=== PATIENT | female | born 1980 | race African-American/Black ===

== ENCOUNTER → 2018-07-06 | Outpatient (CLI) | payer BC ==
[2018-07-06 12:19] LABS: ABSOLUTE BASOPHILS # (AUTO) 0.1 10^3/uL (0.0-0.2); ABSOLUTE EOSINOPHILS # (AUTO) 0.2 10^3/uL (0.0-0.6); ABSOLUTE LYMPHOCYTES (AUTO) 1.3 10^3/uL (0.5-4.7); ABSOLUTE MONOCYTES (AUTO) 0.7 10^3/uL (0.1-1.4); ABSOLUTE NEUT (AUTO) 3.7 10^3/uL (1.7-8.2); EOSINOPHILS % (AUTO) 3.9 % (0-6); HEMATOCRIT 28.8 % (36.0-47.0); HEMOGLOBIN 8.9 g/dL (12.0-15.5); LYMPHOCYTES % (AUTO) 21.9 % (13-45); MEAN CORPUSCULAR VOLUME 71 fl (80-97); MONOCYTES % (AUTO) 11.5 % (3-13); PLATELET COUNT 555 10^3/uL (150-450); RED BLOOD COUNT 4.06 10^6/uL (3.72-5.28); RED CELL DISTRIBUTION WIDTH 18.9 % (11.5-14.0); SEGMENTED NEUTROPHILS % (AUTO) 60.7 % (42-78); TOTAL CELLS COUNTED % (AUTO) 100 %; WHITE BLOOD COUNT 6.1 10^3/uL (4.0-10.5)
[2018-07-06 12:33] LABS: ALANINE AMINOTRANSFERASE 59 U/L (9-52); ALBUMIN 4.6 g/dL (3.5-5.0); ALKALINE PHOSPHATASE 77 U/L (38-126); ANION GAP 13 (5-19); ASPARTATE AMINO TRANSFERASE 70 U/L (14-36); BILIRUBIN,DIRECT 0.3 mg/dL (0.0-0.4); BILIRUBIN,TOTAL 0.5 mg/dL (0.2-1.3); BLOOD UREA NITROGEN 10 mg/dL (7-20); CARBON DIOXIDE 25 mmol/L (22-30); CHLORIDE 104 mmol/L (98-107); GLUCOSE 85 mg/dL (75-110); SODIUM 142.4 mmol/L (137-145); TOTAL PROTEIN 7.9 g/dL (6.3-8.2)
[2018-07-06 13:38] LABS: CHLAM PCR NOT DETECTED (NOT DETECT); GON PCR NOT DETECTED (NOT DETECT)
== END ==
LOC: OD 11:07
PROVIDERS: ATTEND Family Medicine
DX: N92.1 Excessive and frequent menstruation with irregular cycle (principal); Z01.419 Encounter for gynecological examination (general) (routine) without abnormal findings
CPT/HCPCS: 36415; 80053; 84443; 84703; 85025; 87491; 87591

== ENCOUNTER → 2018-07-08 | Outpatient (CLI) | payer BC ==
--- NOTE | 2018-07-08 13:57 | RADIOLOGY REPORT (SQ) ---
EXAM DESCRIPTION: U/S NON-OB PELVIS TV W/O DOP COMPLETED DATE/TIME: 07/08/2018 11:20 am REASON FOR STUDY: ENLARGED UTERUS (N85.2) N85.2 HYPERTROPHY OF UTERUS LMP 06/25/2018 COMPARISON: None. TECHNIQUE: Dynamic and static grayscale images acquired of the pelvis via transvaginal approach and recorded on PACS. Additional selected color Doppler and spectral images recorded. LIMITATIONS: None. FINDINGS: UTERUS: Multiple fibroids. The largest measures 4 x 4.2 x 4.1 cm. ENDOMETRIAL STRIPE: No focal or generalized thickening. No masses. CERVIX: 3.4 cm. Nabothian cysts are present. RIGHT OVARY AND DOPPLER: Surgically absent. LEFT OVARY AND DOPPLER: Ovary not seen. FREE FLUID: None noted. OTHER: No other significant finding. MEASUREMENTS: UTERUS: 10.6 x 6.3 x 5.4 cm. ENDOMETRIAL STRIPE: 15 mm. RIGHT OVARY: Absent. LEFT OVARY: Not seen. IMPRESSION: Uterine fibroids are present. TECHNICAL DOCUMENTATION: JOB ID: [id number] [employer]- All Rights Reserved Rev-09/11 Reading location - IP/workstation name: [email or web address]
== END ==
LOC: RAD 10:36
PROVIDERS: ATTEND Family Medicine
DX: N85.2 Hypertrophy of uterus (principal)
CPT/HCPCS: 76830

== ENCOUNTER → 2019-04-04 | Outpatient (CLI) | payer BC ==
--- NOTE | 2019-04-04 21:07 | XCELERA REPORT ---
[address] [address] Transthoracic Echocardiogram Report Name: JELANI GRACIA Age: 38 yrs Gender: Female : 1980 Patient Status: Outpatient Patient Location: Study Date: 04/04/2019 03:25 PM Height: 66 in Weight: 157 lb BSA: 1.8 m2 Reason For Study: ABN EKG Ordering Physician: VAL CARNES Performed By: Ruchi Simpson Interpretation Summary Small post pericardial effusion. Mod nonstenotic calcific aortic valvular disease, no AR, 3 cusps AV. No Mitral annular calcification, no MS, no MVP. MR is mild/mod. and LA is mod. enlarged.(M-mode is 48mm), no LA calculated by quality assurance technician. MIld concentric LVH (IVS 11/PW 13 mm ) with hypokinesis of the IVS, no other regional wall motion abn. No LV enlargement, LVESD29 mm. Biplane LVEF 53% with LV diastolic dysfunction.E/E' medial is 35. RH is normal size, Mild TR with RVSP 39 mm Hg.(mild pulm hypertension). MMode/2D Measurements & Calculations RVDd: 2.4 cm LVIDd: 5.4 cm FS: 31.4 % Ao root diam: IVSd: 0.61 cm LVIDs: 3.7 cm EDV(Teich): 2.1 cm LVPWd: 0.98 cm 143.5 ml Ao root area: ESV(Teich): 59.2 ml 3.5 cm2 LA dimension: EF(Teich): 58.8 % 4.3 cm LVLd ap4: 8.4 cm SV(MOD-sp4): EDV(MOD-sp4): 70.0 ml 121.0 ml LVLs ap4: 7.2 cm ESV(MOD-sp4): 51.0 ml EF(MOD-sp4): 57.9 % Doppler Measurements & Calculations MV E max katharina: MV dec time: Ao V2 max: LV V1 max P.5 cm/sec 0.09 sec 155.5 cm/sec 3.8 mmHg MV A max katharina: Ao max P.7 mmHgLV V1 max: 93.8 cm/sec 97.6 cm/sec MV E/A: 1.5 PA V2 max: PI end-d katharina: TR max katharina: 83.3 cm/sec 170.1 cm/sec 312.4 cm/sec PA max P.8 mmHg TR max P.0 mmHg I WMSI = 1.13 % Normal = 88 Segments Size X - Cannot 2 - 4 - 1-2 small Interpret 1 - Normal Hypokinetic 3 - AkineticDyskinetic 3-5 moderate 5 - 6-14 large Aneurysmal 15-16 diffuse : VAL CARNES Andre
== END ==
LOC: SP 14:27
PROVIDERS: ATTEND Family Medicine
DX: R94.31 Abnormal electrocardiogram [ECG] [EKG] (principal)
CPT/HCPCS: 93306

== ENCOUNTER → 2020-02-15 | Outpatient (CLI) | payer BC ==
[2020-02-15 08:52] LABS: ABSOLUTE BASOPHILS # (AUTO) 0.1 10^3/uL (0.0-0.2); ABSOLUTE EOSINOPHILS # (AUTO) 0.2 10^3/uL (0.0-0.6); ABSOLUTE LYMPHOCYTES (AUTO) 1.5 10^3/uL (0.5-4.7); ABSOLUTE MONOCYTES (AUTO) 0.9 10^3/uL (0.1-1.4); ABSOLUTE NEUT (AUTO) 3.3 10^3/uL (1.7-8.2); BASOPHILS % (AUTO) 1.4 % (0-2); EOSINOPHILS % (AUTO) 3.3 % (0-6); HEMATOCRIT 30.6 % (36.0-47.0); HEMOGLOBIN 9.3 g/dL (12.0-15.5); LYMPHOCYTES % (AUTO) 24.7 % (13-45); MEAN CORPUSCULAR HEMOGLOBIN 20.7 pg (27.0-33.4); MEAN CORPUSCULAR HGB CONC 30.3 g/dL (32.0-36.0); MEAN CORPUSCULAR VOLUME 68 fl (80-97); MONOCYTES % (AUTO) 14.5 % (3-13); PLATELET COUNT 248 10^3/uL (150-450); RED BLOOD COUNT 4.49 10^6/uL (3.72-5.28); RED CELL DISTRIBUTION WIDTH 20.9 % (11.5-14.0); SEGMENTED NEUTROPHILS % (AUTO) 56.1 % (42-78); TOTAL CELLS COUNTED % (AUTO) 100 %; WHITE BLOOD COUNT 5.9 10^3/uL (4.0-10.5)
[2020-02-15 08:59] LABS: ALBUMIN 4.6 g/dL (3.5-5.0); ALKALINE PHOSPHATASE 77 U/L (38-126); ANION GAP 15 (5-19); ASPARTATE AMINO TRANSFERASE 65 U/L (14-36); BILIRUBIN,DIRECT 0.4 mg/dL (0.0-0.4); BILIRUBIN,TOTAL 0.7 mg/dL (0.2-1.3); BLOOD UREA NITROGEN 8 mg/dL (7-20); CALCIUM 9.8 mg/dL (8.4-10.2); CARBON DIOXIDE 21 mmol/L (22-30); CHLORIDE 102 mmol/L (98-107); CHOLESTEROL 260.57 mg/dL (0-200); GLUCOSE 85 mg/dL (75-110); IRON(TIBC) 19.9 ug/dL (37-170); POTASSIUM 3.9 mmol/L (3.6-5.0); TOTAL PROTEIN 8.3 g/dL (6.3-8.2); TRIGLYCERIDES 87 mg/dL (<150)
[2020-02-15 09:11] LABS: DIRECT LDL 131 mg/dL (<100)
[2020-02-15 09:34] LABS: FERRITIN 8.67 ng/mL (6.2-137.0)
[2020-02-15 10:16] LABS: CHLAM PCR NOT DETECTED (NOT DETECT)
== END ==
LOC: OD 07:06
PROVIDERS: ATTEND Family Medicine
DX: D50.0 Iron deficiency anemia secondary to blood loss (chronic) (principal); E78.5 Hyperlipidemia, unspecified; Z11.3 Encounter for screening for infections with a predominantly sexual mode of transmission; R94.5 Abnormal results of liver function studies
CPT/HCPCS: 36415; 80053; 80061; 82728; 83540; 83550; 85025; 86592; 86701; 86706; 86803; 86804; 87340; 87491; 87591